=== PATIENT | female | born 1995 | race Caucasian/White ===

== ENCOUNTER 2020-05-28 05:14 | Inpatient (IN) | payer OTHER ==
[~2020-05-28] VITALS: Ht 157.5 cm; Wt 83.0 kg
[2020-05-28] MEDS ORDERED: PRENATAL TABLE1 EAC1 PO (06:49)
== END 2020-05-30 17:00 | disposition home or self-care (01) | DRG 807 ==
LOC: LDR 05:14 → OB/GYN 05:14
PROVIDERS: ADMIT Obstetrics & Gynecology; ATTEND Obstetrics & Gynecology
PROC: 10E0XZZ Delivery of Products of Conception, External Approach (ICD-10-PCS; principal; 2020-05-28)
PROC: 3E033VJ Introduction of Other Hormone into Peripheral Vein, Percutaneous Approach (ICD-10-PCS; 2020-05-28)
PROC: 4A1HXFZ Monitoring of Products of Conception, Cardiac Rhythm, External Approach (ICD-10-PCS; 2020-05-28)
DX: O42.02 Full-term premature rupture of membranes, onset of labor within 24 hours of rupture (principal); Z37.0 Single live birth; Z3A.38 38 weeks gestation of pregnancy